=== PATIENT | male | born 1950 ===

== ENCOUNTER 2024-12-14 16:01 | Emergency (ER) | payer OTHER, SELFPAY ==
--- NOTE | ~2024-12-14 | CT_ITS ---
CLINICAL HISTORY: trauma CT left knee without contrast. Comparison: None Findings: Diffuse osteopenia. No evidence of acute fracture or dislocation. Moderate soft tissue swelling along the anterior medial aspect of the knee including the prepatellar region. A chronic ossicle is noted posterior to the lateral femoral condyle. No knee joint effusion. IMPRESSION: No evidence of acute fracture or dislocation. Moderate soft tissue swelling along the anteromedial aspect of the knee including the prepatellar region. This document has been electronically signed by: Tonny Finn MD on 12/14/2024 19:31:26
[2024-12-14 16:14] VITALS: BP 125/68; PULSE 66; RESP 18; TEMP 36.4; O2SAT 98; BMI 28.0
--- NOTE | 2024-12-14 16:21 | ED.GENADULT ---
HPI - General Adult General Chief complaint: Fall Stated complaint: Fall 11/26, Knee pain Time Seen by Provider: 12/14/24 19:37 Source: patient History of Present Illness ED Provider: Dr. Steve Lantigua HPI narrative: 74-year-old male who presents right knee injury after fall that occurred on 11/26/2024. Patient states that he was taking the garbage out, he was extremely icey. And slipped and fell. He states that he twisting his left knee outward and landing on his right knee. He states that since the injuries, he has severe pain in his left knee. He states that the pain is worse if he tries to twist his knee or bend his knee. Patient was also worse if he puts weight on the knee. He states he has been able to walk cane but has significant pain and has a limp. The patient was seen at [facility] on 11/26/2024. Based on the patient's discharge papers, he had a CT scan and x-rays of the knee which were negative. The patient states that he did not follow-up with [facility] he was instructed in the discharge papers. Patient states he has been taking tramadol, Tylenol and ibuprofen with no relief of his pain. Related Data Previous Rx's ?Medication ?Instructions ?Recorded morphine 15 mg immediate release 15 mg PO Q8H PRN pain #15 tabs 12/14/24 tablet Allergies Allergy/AdvReac Type Severity Reaction Status Date / Time No Known Allergies Allergy Verified 12/14/24 16:16 Review of Systems Review of Systems: Yes all other systems are reviewed and are negative PMFSH Social History Social History Advance Directives: No Advance Directives Information Provided: No Physical Exam ED Vital Signs: Vital Signs - 24 hr 12/14/24 16:14 12/14/24 20:51 12/14/24 21:16 Temperature 97.6 F 97.8 F 97.8 F Pulse Rate 66 66 66 Respiratory Rate 18 18 18 Blood Pressure 125/68 126/66 126/66 Pulse Oximetry 98 98 98 Oxygen Delivery Method Room Air Room Air Room Air BMI result Body Mass Index 28.0 Vital signs were normal Exam: Left lower extremity: Patient does have tenderness palpation over the medial collateral ligament, he was no significant pain with movement of his patella or palpation over the patella tendon. He has a positive lever sign. He was able to minimally flex his knee but it was limited secondary to pain. He has increased pain with medial stress of the knee. In his normal with no lesions, erythema or increased warmth. Extremities neurovascularly intact. Course Course Course Narrative: This is a rapid medical exam performed by Brooke Booker PA-C. Patient is a 74-year-old male who presents after a fall that occurred on November 26. Patient states he tripped and fell, landing on his left knee, he had negative x-rays at [facility]. Patient has had ongoing pain, he does not have an appointment with primary care until January. On exam there was no deformity, the patient was able to flex and extend, although it causes him a great deal of pain. Given he had negative x-rays, we will be obtaining a CT scan. Patient is stable and can return to the waiting room pending his full medical assessment. To note he is ambulatory using his cane. Medications Administered Discontinued Medications Generic Name Dose Route Start Last Admin Trade Name Freq PRN Reason Stop Dose Admin Morphine Sulfate 15 mg 12/14/24 20:09 12/14/24 20:30 Morphine Sulfate Immed Release 15 Mg Tablet PO 12/14/24 20:10 15 mg ONCE ONE Administration Medical Decision Making Medical Decision Making MDM Narrative: 74-year-old male who presents right knee injury after fall that occurred on 11/26/2024. Patient describes twisting his left knee outward and landing on his right knee. Patient was seen at [facility] and had a negative CT scan and x-ray of the knee. Patient was had significant pain not relieved by tramadol, Tylenol or ibuprofen. He was had difficulty walking secondary to his discomfort. Vital signs were normal. Examination did reveal tenderness palpation over the medial collateral ligament of the left knee with increased pain with medial stress. No significant joint effusion. Differential diagnosis: ?Includes but is not limited to medial collateral ligament sprain, meniscal injury, occult fracture, septic arthritis, inflammatory arthritis Course: Patient's CT scan of he left knee did not reveal any acute fracture. The radiologist did note ?moderate soft tissue swelling along the anteromedial aspect of the knee including the prepatellar region ?. I did discuss these findings with the patient and the patient's . Patient was placed in a knee immobilizer. Patient was shown the proper technique of walking with a cane and he was able to ambulate without any difficulty. Patient was advised to stop his tramadol. He was advised to take Tylenol and ibuprofen for pain not relieved by these medications he was prescribed morphine 15 mg every 8 hours as needed for pain. He was given a dose of morphine 15 mg orally here in the emergency department for his pain. Patient will need further evaluation of his knee injury by our orthopedic group. Patient was advised to contact our orthopedic group in the morning to schedule a follow-up in 1-2 weeks. He was given printed and verbal instructions and discharged home. Admission/Observation Consideration of admission/observation: Escalation of care including admission/observation considered (No) Radiology Impression Discussion of test interpretation with radiology: I have reviewed the radiologist's reading. Radiologist Impression: CT left knee without contrast. Comparison: None Findings: Diffuse osteopenia. No evidence of acute fracture or dislocation. Moderate soft tissue swelling along the anterior medial aspect of the knee including the prepatellar region. A chronic ossicle is noted posterior to the lateral femoral condyle. No knee joint effusion. IMPRESSION: No evidence of acute fracture or dislocation. Moderate soft tissue swelling along the anteromedial aspect of the knee including the prepatellar region. This document has been electronically signed by: Tonny Finn MD on 12/14/2024 19:31:26 Independent Historian Clinical information obtained from an independent historian. History obtained from or confirmed by: Spouse Prescription Management I considered prescription management with: Pain Medication (Morphine) Discharge Plan Discharge Clinical Impression: Injury of knee, left Qualifiers: Encounter type: initial encounter Qualified Code(s): S89.92XA - Unspecified injury of left lower leg, initial encounter Sprain of medial collateral ligament of left knee Qualifiers: Encounter type: initial encounter Qualified Code(s): S83.412A - Sprain of medial collateral ligament of left knee, initial encounter Fall Qualifiers: Encounter type: initial encounter Qualified Code(s): W19.XXXA - Unspecified fall, initial encounter Patient Disposition: Home, Self-Care Instructions: Knee Sprain (ED), Knee Immobilizer (ED) Additional Instructions: The CAT scan of your knee revealed no broken bones. The radiologist did see swelling over the inside part of your knee. This is consistent with stretching/spraining or tearing the medial collateral ligament. Wear the knee immobilizer to your re-evaluated by our orthopedic group. Use the cane or the crutches as instructed to help relieve the weight that you put on your left knee. Apply ice for 15 minutes to the inside part of your left knee wear your having pain, leave the ice on for 15-20 minutes and do this 4 to 6 times a day. Take ibuprofen 200 mg pills, 1 pills every 6 hours as needed for pain. Take Tylenol (acetaminophen) 325 mg pills, 2 pills every 6 hours as needed for pain. For pain not relieved by ibuprofen or Tylenol take morphine 15 mg pills, 1 pill every 6 hours as needed for pain. This medication will make you sleepy, do not drive or work while taking this medication. Morphine is a narcotic medication and can be addicting. If you are concerned about addiction you can ask the pharmacist for less pills or do not get this prescription filled. Stop taking your tramadol while you are taking morphine. Follow-up with our orthopedic group in 1-2 weeks. Please return to the emergency department if your symptoms get worse or if you develop any symptoms that are concerning to you. Prescriptions: New morphine 15 mg tablet 15 mg PO Q8H PRN (Reason: pain) Qty: 15 0RF Rx Instructions: Partial Fill upon patient request. Referrals: Jose L Holley MD [Physician] - 2 weeks (Fall 11/26/2024 with twisting of the left knee. Seen at [facility] with negative x-ray and CT scan. Repeat CT of the knee today was negative for fracture but he does have soft tissue swelling Moderate soft tissue swelling along the anteromedial aspect of the knee including the prepatellar region . I suspect that he has a medial collateral ligament injury. Patient placed in an immobilizer and given crutches/cane. ) Interventions: ED Discharge Assessment Last Done: 12/14/24 21:16 Discharge Date/Time: 12/14/24 21:16 Print Language: Macanese
[2024-12-14] MEDS: Morphine Sulfate Immed Release 15 MG TABLET PO (20:30)
[2024-12-14 20:51] VITALS: BP 126/66; PULSE 66; RESP 18; TEMP 36.6; O2SAT 98
[2024-12-14 21:16] VITALS: BP 126/66; PULSE 66; RESP 18; TEMP 36.6; O2SAT 98
== END 2024-12-14 21:16 | disposition home or self-care (01) ==
PROVIDERS: Emergency Provider Emergency Medicine Emergency Medical Services; PCP Pediatrics
DX: S89.92XA Unspecified injury of left lower leg, initial encounter (principal); S83.412A Sprain of medial collateral ligament of left knee, initial encounter; W00.2XXA Other fall from one level to another due to ice and snow, initial encounter; Y93.89 Activity, other specified; Y92.89 Other specified places as the place of occurrence of the external cause; Y99.9 Unspecified external cause status; M25.562 Pain in left knee
CPT/HCPCS: 73700; 99283; 99284

== ENCOUNTER → 2024-12-14 16:20 | Outpatient (BNV) | payer OTHER, SELFPAY | PROVIDERS: Emergency Provider Emergency Medicine Emergency Medical Services; PCP Pediatrics; Visit Provider Student in an Organized Health Care Education/Training Program | DX: M25.562 Pain in left knee (principal) | CPT/HCPCS: 73700 ==